=== PATIENT | male | born 1960 | race African-American/Black ===

== ENCOUNTER 2023-04-04 03:13 | Emergency (ER) | payer MEDICAID ==
[~2023-04-04] VITALS: Ht 175.3 cm; Wt 67.3 kg
[2023-04-04 03:33] VITALS: O2SAT 99
[2023-04-04] MEDS ORDERED: KETOROLAC 60MG/2ML VIAL IM ONE (05:30)
[2023-04-04 05:56] VITALS: BP 149/84
[2023-04-04] MEDS ORDERED: TOPUD PO (07:13)
[2023-04-04 07:21] VITALS: PULSE 92; TEMP 97.2
== END 2023-04-04 07:23 | disposition home or self-care (01) ==
LOC: ER 03:32
DX: R51.9 Headache, unspecified (principal); R42 Dizziness and giddiness
CPT/HCPCS: 70450; 72125; 96372; 99285; J1885; Z7610